=== PATIENT | female | born 1970 | race Caucasian/White ===

== ENCOUNTER 2025-03-20 12:52 | Outpatient (OUT) | payer OTHER, SELFPAY ==
--- OUTSIDE RECORDS SUMMARY | 2025-03-20 12:59 | XMS_ITS | Encounter Summary ---
Author Organization [facility] Address [address] [place] [address] Phone Care Team Providers Care Needle Process Felt Goods Supervisor Name Role Phone Unavailable Primary Care Provider Unavailabl e Encounter Details Date Type Department Care Team (Late st Contact Info) Description 01/10/2024 Patient Risk Score ACO Care Management [address] [place] [phone] Social History Tobacco Use Types Packs/Day Years Used Date Smoking Tobacco: Never Assessed Comments Unknown Sex and Gender Information Value Date Recorded Sex Assigned at Not on file Legal Sex Female 5:15 PM EST Gender Identity Not on file Sexual Orientation Not on file documented as of this encounter Plan of Treatment Not on file documented as of this encounter Visit Diagnoses Not on filedocumented in this encounter
--- OUTSIDE RECORDS SUMMARY | 2025-03-20 12:59 | XMS_ITS | Encounter Summary ---
Author Organization [facility] Address [address] [place] [address] Phone Care Team Providers Care Eligibility And Occupancy Interviewer Name Role Phone Unavailable Primary Care Provider Unavailabl e Encounter Details Date Type Department Care Team (Late st Contact Info) Description 11/11/2023 Patient Risk Score ACO Care Management [address] [place] [phone] Social History Tobacco Use Types Packs/Day Years [...]
--- OUTSIDE RECORDS SUMMARY | 2025-03-20 12:59 | XMS_ITS | Encounter Summary ---
Author Organization [facility] Address [address] [place] [address] Phone Care Team Providers Care Wellness Program Manager Name Role Phone Unavailable Primary Care Provider Unavailabl e Encounter Details Date Type Department Care Team (Late st Contact Info) Description 02/09/2024 Patient Risk Score ACO Care Management [address] [place] [phone] Social History Tobacco Use Types Packs/Day Years [...]
--- OUTSIDE RECORDS SUMMARY | 2025-03-20 12:59 | XMS_ITS | Encounter Summary ---
Author Organization [facility] Address [address] [place] [address] Phone Care Team Providers Care Correctional Medicine Physician Name Role Phone Unavailable Primary Care Provider Unavailabl e Encounter Details Date Type Department Care Team (Late st Contact Info) Description 10/10/2023 Patient Risk Score ACO Care Management [address] [place] [phone] Social History Tobacco Use Types Packs/Day Years [...]
--- OUTSIDE RECORDS SUMMARY | 2025-03-20 12:59 | XMS_ITS | Clinical Summary ---
Author Organization [facility] Address [address] [place] [address] Care Team Providers Care Bread Dumper Name Role Phone Unavailable Primary Care Provider Unavailabl e Source Comments PLEASE NOTE, if this patient is a minor, it may be UNLAWFUL to discuss sensitive information that is contained in these records (such as FAMILY PLANNING, MENTAL HEALTH or SUBSTANCE ABUSE) with the minor patient's parent or other person without the patient's specific authorization.[facility] Allergies Active Allergy Reactions Criticality Noted Date Comments Penicillin Swelling High 05/01/2015 Hives Medications hydrochlorothiaz wen (MICROZIDE) 12.5 mg capsuleIndicatio ns:Essential hypertension, benign Take 1 Cap by mouth once daily. 30 Cap 0 05/01/2015 Active Active Problems Problem Noted Date Diagnosed Date Essential hypertension, benign 05/01/2015 Social History Tobacco Use Types Packs/Day Years Used Date Smoking Tobacco: Every Day Cigarettes 1 20 Smokeless Tobacco: Never Tobacco Cessation:Ready to Q uit: Yes; Counseling Given: Yes Alcohol Use Standard Drinks/Week Comments Yes 1 (1 standard drink = 0.6 oz pure alcohol) Very little once or twice a moth Comments Unknown Sex and Gender Information Value Date Recorded Sex Assigned at Not on file Legal Sex Female 6:24 AM PDT Gender Identity Not on file Sexual Orientation Not on file Last Filed Vital Signs Vital Sign Reading Time Taken Comments Blood Pressure 146/111 05/01/2015 10:34 AM EDT Pulse 95 05/01/2015 10:34 AM EDT Temperature 36.7 C (98 F) 05/01/2015 10:34 AM EDT Respiratory Rate 11 05/01/2015 10:34 AM EDT Oxygen Saturation - - Inhaled Oxygen Concentration - - Weight 73.9 kg (163 lb) 05/01/2015 10:34 AM EDT Height 165.1 cm (5' 5 ) 05/01/2015 10:34 AM EDT Body Mass Index 27.12 05/01/2015 10:34 AM EDT Plan of Treatment Not on file
--- OUTSIDE RECORDS SUMMARY | 2025-03-20 12:59 | XMS_ITS | Clinical Summary ---
Author Organization [facility] Address [address] [place] [place] [address] Phone Care Team Providers Care Selector Packer Name Role Phone Unavailable Primary Care Provider Unavailabl e Social History Tobacco Use Types Packs/Day Years Used Date Smoking Tobacco: Never Assessed Comments Unknown Sex and Gender Information Value Date Recorded Sex Assigned at Not on file Legal Sex Female 5:15 PM EST Gender Identity Not on file Sexual Orientation Not on file Plan of Treatment Health Maintenance Due Date Last Done Comments CT Colonography 1971 Colonoscopy 1971 Colorectal Cancer Screening 1971 FIT-DNA (Cologuard) 1971 FIT 1971 HIV Screening 1971 Sigmoidoscopy 1971 Yearly Adult Physical 1971 MMR Vaccines (1 of 1 - Standard series) 1972 Hepatitis C Screening 1989 Hepatitis B Vaccines (1 of 3 - 19+ 3-dose series) 1990 Cervical Cancer Screening 1992 HPV/Cotest 1992 Pap Smear 1992 DTaP/Tdap/Td Vaccines (1 - Tdap) 1993 Mammogram 2011 Pneumococcal Vaccine (2 of 2 - PCV) 2021 09/01/2014 Zoster Vaccines (1 of 2) 2021 COVID-19 Vaccine (2 - 2023-2 5 season) 2024 10/26/2020 Influenza Vaccine (Season Ended) 2025 09/01/2020, 09/01/2014 Lipid Panel 08/17/2027 08/17/2022 HIB Vaccines Aged Out No longer eligi ble based on patient's age to complete this topic HPV Vaccines Aged Out No longer eligi ble based on patient's age to complete this topic Hepatitis A Vaccines Aged Out No long er eligible based on patient's age to complete this topic IPV Vaccines Aged Out No longer eligi ble based on patient's age to complete this topic Meningococcal Vaccine Aged Out No corina gaetano eligible based on patient's age to complete this topic Rotavirus Vaccines Aged Out No longer eligible based on patient's age to complete this topic Procedures Procedure Name Priority Date/Time Associated Diagnosis Comments LIPID PANEL Routine 08/17/2022 12:18 PM EST from Last 3 Months or Most Recently Relevant to Health Maintenance Results * (ABNORMAL) Lipid Panel (08/17/2022 12:18 PM EST) Cholesterol 265(H) 0 - 199 mg/dL [facility] Comment: . AGE DESIRABLE BORDERLINE HIGH HIGH 0-19 Y 0 - 169 170 - 199 >/= 200 20-24 Y 0 - 189 190 - 224 >/= 225 >24 Y 0 - 199 200 - 239 >/= 240 All ranges are based on fasting samples. Specific therapeutic targets will vary based on patient-specific cardiac risk. . Pediatric guidelines reference:Pediatrics 2011, 128(S5). Adult guidelines reference: NCEP ATPIII Guidelines, MOUNA 2001, 258:2486-97 . Venipuncture immediately after or during the administration of Metamizole may lead to falsely low results. Testing should be performed immediately prior to Metamizole dosing. HDL 38.1(A) mg/dL [facility] Comment: . AGE VERY LOW LOW NORMAL HIGH 0-19 Y < 35 < 40 40-45 ---- 20-24 Y ---- < 40 >45 ---- >24 Y ---- < 40 40-60 >60 . Cholesterol/HDL Ratio 7.0(A) [facility] Comment: REF VALUES DESIRABLE < 3.4 HIGH RISK > 5.0 LDL 192(H) 0 - 99 mg/dL [facility] Comment: . NEAR BORD AGE DESIRABLE OPTIMAL HIGH HIGH VERY HIGH 0-19 Y 0 - 109 --- 110-129 >/= 130 ---- 20-24 Y 0 - 119 --- 120-159 >/= 160 ---- >24 Y 0 - 99 100-129 130-159 160-189 >/=190 . VLDL 35 0 - 40 mg/dL [facility] Triglycerides 175(H) 0 - 149 mg/dL [facility] Comment: . AGE DESIRABLE BORDERLINE HIGH HIGH VERY HIGH 0 D-90 D 19 - 174 ---- ---- ---- 91 D- 9 Y 0 - 74 75 - 99 >/= 100 ---- 10-19 Y 0 - 89 90 - 129 >/= 130 ---- 20-24 Y 0 - 114 115 - 149 >/= 150 ---- >24 Y 0 - 149 150 - 199 200- 499 >/= 500 . Venipuncture immediately after or during the administration of Metamizole may lead to falsely low results. Testing should be performed immediately prior to Metamizole dosing. 08/17/2022 12:1 8 PM EST 08/17/2022 4:19 PM EST us Prasanth Buck DO LAB BLOOD ORDERABLES Final Re sult [facility] [address] [place] [address] from Last 3 Months or Most Recently Relevant to Health Maintenance Insurance [employer] Member Subscriber Plan / Payer (Ef fective 2024-Present) Name:Zaynab Mario Relation to Subscriber:Self Name:Zaynab Mario Payer ID:[id number] (NAIC) Group ID:Not on file Type:Not on file Address: [address] [employer] GENER[employer] COMM[employer]CIAL
--- OUTSIDE RECORDS SUMMARY | 2025-03-20 12:59 | XMS_ITS | Encounter Summary ---
Author Organization [facility] Address [address] [place] [address] Phone Care Team Providers Care Fire Alarm Technician Name Role Phone Unavailable Primary Care Provider Unavailabl e Encounter Details Date Type Department Care Team (Late st Contact Info) Description 12/10/2023 Patient Risk Score ACO Care Management [address] [place] [phone] Social History Tobacco Use Types Packs/Day Years [...]
--- NOTE | 2025-03-20 13:06 | XR_ITS ---
The [address] [address] Patient Name: MORENA GARLAND MRN: [id number] date: 1970 Sex: F Assigned Patient Location: [facility] Current Patient Location: [facility] Accession/Order Number: [id number] Exam Date: 03/20/2025 13:22 Report Date: 03/20/2025 13:25 At the request of: SILVIA SAWYER NP Procedure: XR foot LT min 3V LEFT FOOT - 3 views CLINICAL DATA: Left foot pain, pressure and dorsal swelling. No injury. COMPARISON: None AP, lateral and oblique views were obtained. There is no evidence of fracture or dislocation. Cystic change is present at the base of the proximal phalanx of the first toe. A tiny plantar calcaneal spur is seen. There is minor dorsal soft tissue swelling. XR/XR foot LT min 3V IMPRESSION: NO ACUTE BONY FINDINGS. Impression dictated by: Gaby Barreto M.D. 03/20/2025 1:25 PM Dictation Location: [place] [address] Electronically authenticated by: [id number] Y Date: 03/20/2025 13:25
== END 2025-03-20 12:53 | disposition home or self-care (01) ==
PROVIDERS: Visit Provider Nurse Practitioner Primary Care
DX: M79.672 Pain in left foot (principal)
CPT/HCPCS: 73630